=== PATIENT | female | born 1985 | race Caucasian/White ===

== ENCOUNTER 2016-09-17 11:38 | Emergency (ER) | payer OTHER ==
[~2016-09-17] VITALS: Ht 154.9 cm; Wt 120.2 kg
--- NOTE | 2016-09-17 12:11 | ECGEPIP ---
Stationary ECG Study [facility] Test Date: 2016-09-17 Pat Name: TREVON URRUTIA Department: Room: - Gender: F Lighter: : 1985 Requested By: Becca Hare Order Number: [id number] Reading MD: Macy Wilson Measurements Intervals [place] Rate: 63 P: 44 NV: 157 QRS: 24 QRSD: 80 T: 19 QT: 385 QTc: 397 Interpretive Statements SINUS RHYTHM NORMAL NO PRIOR Electronically Signed On 09-17-2016 12:11:28 EDT by Macy Wilson
[2016-09-17] MEDS ORDERED: NS 1,000 ML IV ONE (12:15)
[2016-09-17 12:54] LABS: MEAN CORPUSCULAR HEMOGLOBIN 30.9 pg (27.0-33.0); MEAN CORPUSCULAR HGB CONC 33.1 g/dl (32.0-36.5); MEAN CORPUSCULAR VOLUME 93.2 fl (80.0-96.0); RED CELL DISTRIBUTION WIDTH 12.7 % (11.5-14.5); WHITE BLOOD COUNT 9.1 K/mm3 (4.0-10.0)
[2016-09-17 13:08] LABS: CONTROL LINE HCG INT CTR LINE PRESENT
[2016-09-17 13:27] LABS: ANION GAP 5 MEQ/L (8-16); BLOOD UREA NITROGEN 21 MG/DL (7-18); CALCIUM LEVEL 9.4 MG/DL (8.5-10.1); CARBON DIOXIDE LEVEL 31 MEQ/L (21-32); CHLORIDE LEVEL 103 MEQ/L (98-107); GLOMERULAR FILTRATION RATE > 60.0 (>60); GLUCOSE, FASTING 93 MG/DL (70-105); POTASSIUM SERUM 4.2 MEQ/L (3.5-5.1); SODIUM LEVEL 139 MEQ/L (136-145); T UPTAKE 35 % (30-39); THYROXINE (T4) 7.6 UG/DL (4.5-12.0)
[2016-09-17 13:29] LABS: METHADONE URINE NEGATIVE (NEGATIVE)
[2016-09-17] MEDS ORDERED: IBUP-1022 PO (13:53)
[2016-09-17] MEDS ORDERED: CYCL10TA PO (13:53)
[2016-09-17 14:14] VITALS: BP 111/76
== END 2016-09-17 14:16 | disposition home or self-care (01) ==
LOC: M ED 12:20
DX: R55 Syncope and collapse (principal); M54.5 Low back pain